=== PATIENT | female | born 1960 | race African-American/Black ===

== ENCOUNTER → 2017-10-29 | Day surgery (SDC) | payer OTHER ==
[~2017-10-29] MED LIST: BACTRIM DS TAB1 EACH PO; CALCIUM500 MG PO; CELLCEPT500 MG PO; FAMOTIDINE20 MG PO; FENTANYL CITRATE/PF 100MCG/2 ML INJ ONE; FOLIC ACID1 MG PO; HYDROXYCHLOROQ200 MG PO; KEPPRA500 MG PO; LASIX20 MG PO; LIDOCAINE HCL 2% LOCAL INJ 5 ML SDV VIAL INJ ONE; LORATADINE10 MG PO; LYRICA100 MG PO; MIDAZOLAM HCL 2 MG/2 ML VIAL ONE; NORCO 5-325 TA1 EACH PO; PAMELOR25 MG PO; PANTOPRAZOLE SO40 MG PO; PREDNISONE5 MG PO; PROPOFOL IV EMULSION 10 MG/ML 50 ML VIAL ONE; PYRIDOXINE HCL50 MG PO; TIZANIDINE HCL4 MG PO; ULTRAM 50MG50 MG PO; VALTREX500 MG PO; VITAMIN B-121000 MC1 PO; VITAMIN D250000 UNIT PO; VOLTAREN100 GM TOP
== END | disposition home or self-care (01) ==
LOC: OR 06:15
PROVIDERS: ATTEND Internal Medicine Gastroenterology
DX: K22.2 Esophageal obstruction (principal); K21.9 Gastro-esophageal reflux disease without esophagitis; K31.89 Other diseases of stomach and duodenum; K44.9 Diaphragmatic hernia without obstruction or gangrene; B37.81 Candidal esophagitis; S11.21XA Laceration without foreign body of pharynx and cervical esophagus, initial encounter; K91.71 Accidental puncture and laceration of a digestive system organ or structure during a digestive system procedure; E66.9 Obesity, unspecified; M32.9 Systemic lupus erythematosus, unspecified; M06.9 Rheumatoid arthritis, unspecified; R56.9 Unspecified convulsions; M19.90 Unspecified osteoarthritis, unspecified site; Z71.3 Dietary counseling and surveillance; Y65.8 Other specified misadventures during surgical and medical care; Y82.8 Other medical devices associated with adverse incidents; Y92.234 Operating room of hospital as the place of occurrence of the external cause; Z01.810 Encounter for preprocedural cardiovascular examination; Z68.39 Body mass index [BMI] 39.0-39.9, adult
CPT/HCPCS: 43249; 93005; J2001; J2250; 43235; 43450